=== PATIENT | male | born 1975 | race African-American/Black ===

== ENCOUNTER 2017-03-20 05:57 | Day surgery (SDC) | payer MEDICAID ==
[2017-03-19 15:48] LABS: HEMATOCRIT 41.8 % (42.0-54.0); MCH 30.2 pg (26.0-34.0); MCHC 33.5 g/dL (31.0-37.0); MCV 90.3 fL (80.0-100.0); RBC 4.63 10x6/uL (4.20-6.10); RDW 12.8 % (11.5-14.5); WBC 4.7 10x3/uL (4.8-10.8)
[~2017-03-20] VITALS: Ht 175.3 cm; Wt 113.4 kg
--- NOTE | ~2017-03-20 | OP ---
PATIENT NAME: ROHAN NARAYANAN MEDICAL RECORD: [id number] :77 LOCATION:[facility] ADMISSION DATE: SURGEON: JESSICA ARAIZA DO DATE OF OPERATION: 03/20/2017 PROCEDURE PERFORMED: A right ACL reconstruction with autograft and allograft, allograft posterior tib and autograft hamstrings, and also a partial medial meniscectomy. PREOPERATIVE DIAGNOSES: Right anterior cruciate ligament strain versus tear and medial meniscal tear in posterior horn. POSTOPERATIVE DIAGNOSES: Right anterior cruciate ligament tear, complete and posterior horn medial meniscus tear. INDICATIONS: Mr. Rohan Narayanan is a 41-year-old male who has had right knee pain for some time, has been catching and locking, popping and even feeling unstable. He does not remember an injury; however, this has been going on for quite some time. An MRI was done of his knee, which showed a possible high-grade partial tear of the ACL and a medial meniscal tear of the posterior horn. We had a long discussion with him in the office about and once we got in there we would probe the ACL and if it was not taut then we would do a reconstruction or if it is torn, we would do reconstruction and then we do a medial meniscectomy, partial. He was okay with that plan and consented to the procedure. He is aware of the risks and benefits as well as the pre and postop protocols. DESCRIPTION OF PROCEDURE: The patient was given a block in the preoperative area by anesthesia and taken to the operative suite, given 2 grams of Ancef preoperatively. The right lower extremity was prepped and draped in sterile fashion with a tourniquet above the knee. A timeout was performed and everyone was in agreement with the correct side, site, and patient. After this was done, the knee arthroscopy began with the knee flexed. A lateral portal was established with an 11-blade scalpel. The scope was entered into the knee and inspected. No loose bodies were seen in the suprapatellar pouch, the lateral pouch, or the medial pouch. The medial joint line was then entered. The medial portal was established. The ACL was probed at that time to see if we will be doing the reconstruction and indeed that was torn completely off the lateral femoral condyle, medial aspect, and was quite loose in the joint. We then opened up the medial joint and saw the meniscal tear. This was trimmed out with an upbiter and shaver back to a stable position. Once this was done, a lateral compartment was inspected and no meniscal tears were seen or any cartilage tears. The cartilage does appear to be intact on the medial femoral condyle; however, it was soft. The ACL was then cleaned out at that time. We then went to harvest the hamstrings. Incision was made approximately 6 cm from the medial joint line just to the medial side of the tibial tubercle. The hamstrings in the semitendinosus and gracilis were palpated. Careful dissection was made down the sartorial fascia. This was dissected and the gracilis was dissected out as well as the semitendinosus. Semitendinosus was harvested 1st and with a whipstitch and then divided. Then, the fascial connections to the medial gastroc were divided and freed up and then a tendon stripper was used to harvest the tendon. The gracilis was harvested in a similar manner; however, it was exceedingly short and thin and was not suitable for graft. At that time, we decided to use the posterior tib tendon, which is what we had in the freezer here to augment the hamstrings. The graft was then prepared and during that OPERATIVE REPORT [id number] ROHAN NARAYANAN time on the back table and the femoral condyle, lateral femoral canal was cleaned off more as well as the tibia to see where the ACL footprint was and outside in drill guide was used from [employer] and a size 11 was used. After the graft was sized and this was drilled, a nitinol wire was then passed through and secured through the medial portal from the lateral femoral condyle. After this was done, the tibia was drilled, first the guide was set at 50 degrees and once the tunnel position was in good position with a guide wire, we then reamed 7 and then a 10 and then dilated to a 11. We then attempted to pass the graft and did not pass easily. The ToggleLoc actually cinch down, had to take the graft out and reamed up to a 10.5 and then dilated to an 11 on the tibial side. Once this was done, the graft was attempted to pass again and the ToggleLoc failed to cinch down prior to flipping on the lateral femoral cortex. So, I decided to use an extra large [employer] ToggleLoc, which the graft was then passed and the button did flip on the lateral femoral cortex and we were able to cinch the graft into the femoral tunnel. Once this was done, the sutures off the graft were tied and the tensioner was used from [employer]. The graft was tensioned. The knee was cycled 20 times and tensioned, and then the dilator was used, and then the sheath was entered and malleted it into place, and a screw was then entered into the sheath and put flush with the tibia. We then checked inside the knee joint. The tourniquet was let down, had been inflated prior to making the femoral tunnels and had been up for 120 minutes at this point and was let down. We then entered the knee again and viewed the graft is in very good position and probe seemed to be very taut and then the excess sutures were cut inside the knee joint and that we used to toggle and also at the tibial side with sutures pulled through the ToggleLoc button as well. Once this was done, the wounds were irrigated and the graft sites over the sartorial fascia was closed with 2-0 Vicryl and then the skin 2-0 interrupted sutures were used on the skin and then 4-0 Monocryl running on the skin. The portal sites were then closed with 4-0 Monocryl as well as the femur side where the lateral femoral side incision was made in order to create a femoral tunnel. This was closed with 4-0 Monocryl as well. Steri-Strips were placed over all the wounds and Adaptic, 4 x 4s, ABD, cast padding were placed on the knee and a 6-inch Alejandro. The patient was placed with a JESUSITA hose up to the knee and placed in a knee immobilizer. He was awakened and taken to recovery in stable condition. ESTIMATED BLOOD LOSS: Minimal. COMPLICATIONS: None. TOURNIQUET TIME: 120 minutes. TRANSINT:[id number] Voice Confirmation ID: [id number] DOCUMENT ID: [id number] JESSICA ARAIZA DO at 1431 CC: [id number] DICTATION DATE: 03/20/17 1516 PRODUCTION LEADER: 03/20/17 2356 [facility] 03/20/17 [place] [address]
[~2017-03-20 05:57] MED LIST: BUPRENORPHIN-N1 EACH SL; CELEXA10 MG PO; NORVASC10 MG PO; TRAZODONE HCL150 MG PO
[2017-03-20 07:52] VITALS: BP 154/108; Ht 175.3 cm; Wt 113.4 kg
[2017-03-20] MEDS ORDERED: TORADOL10 MG PO (15:05)
[2017-03-20] MEDS ORDERED: PERCOCET 7.5/321 TAB PO (15:06)
== END 2017-03-20 17:15 | disposition home or self-care (01) ==
LOC: D.OPS 05:57 → D.PAN 09:15 → D.OPS 09:15
PROVIDERS: Anesthesiology
DX: S83.511A Sprain of anterior cruciate ligament of right knee, initial encounter (principal); S83.241A Other tear of medial meniscus, current injury, right knee, initial encounter; Z01.812 Encounter for preprocedural laboratory examination; X58.XXXA Exposure to other specified factors, initial encounter

== ENCOUNTER 2020-06-23 07:22 | Observation (INO) | payer MEDICAID ==
[~2020-06-23] VITALS: Ht 175.3 cm; Wt 136.4 kg
[~2020-06-23 07:22] MED LIST changes: +PERCOCET 7.5/321 TAB PO; +TORADOL10 MG PO
[2020-06-23 07:40] VITALS: BP 155/95
[2020-06-23 07:50] LABS: UDS - AMPHET NEGATIVE QUAL (NEGATIVE); UDS - BARB NEGATIVE QUAL (NEGATIVE); UDS - BENZO NEGATIVE QUAL (NEGATIVE); UDS - COCAINE NEGATIVE QUAL (NEGATIVE); UDS - OPIATE NEGATIVE QUAL (NEGATIVE); UDS - PCP NEGATIVE QUAL (NEGATIVE); UDS - THC POSITIVE QUAL (NEGATIVE)
[2020-06-23 08:00] LABS: BACTERIA RARE HPF (NONE SEEN); BILIRUBIN NEGATIVE (NEGATIVE); KETONE NEGATIVE (NEGATIVE); NITRITE NEGATIVE (NEGATIVE); UROBILINOGEN NORMAL mg/dL (< 2); WHITE CELLS - URINE 0-5 HPF (0-1)
[2020-06-23 08:29] LABS: BASOPHILS 0.2 % (0-2); EOSINOPHILS 0.3 % (0-7); HEMOGLOBIN 13.8 g/dL (13.5-17.5); IMMATURE GRANULOCYTES 0.2 % (0-5); LYMPHOCYTES 21.6 % (15-50); MCHC 32.1 g/dL (31.0-37.0); MCV 93.5 fL (80.0-100.0); MEAN PLATELET VOLUME 11.3 fL (7.4-10.4); MONOCYTES 4.9 % (2-11); NEUTROPHIL ABS# 4.71 10x3/uL (1.78-5.38); NEUTROPHILS 72.8 % (40-80); RDW 13.5 % (11.5-14.5); WBC 6.5 10x3/uL (4.8-10.8)
[2020-06-23 08:35] LABS: PLATELET COUNT 196 10x3/uL (130-400)
--- NOTE | 2020-06-23 09:52 | NUR ---
PT RESTING IN BED WITH S/O AT BEDSIDE. STATES HE FEELS A BIT OFF AND HIS BALANCE IS UNSTEADY. HE WOKE FEELING THIS WAY. WAS CONFUSED AND THAT WORRIED HIM. VSS AND NO C/O PAIN AT THIS TIME. WILL ADMIT PER MD. CALL LIGHT IN REACH.
[2020-06-23 10:10] LABS: CALC OSMOLALITY 279 mosm/kg (275-300); CALCIUM 8.7 mg/dL (8.5-10.1); CARBON DIOXIDE 27.8 mmol/L (21.0-32.0); CHLORIDE - SERUM 103 mmol/L (98-107); CREATININE - SERUM 1.5 mg/dL (0.6-1.3); GLUCOSE 107 mg/dL (74-106); POTASSIUM - SERUM 4.3 mmol/L (3.5-5.1); SODIUM 138 mmol/L (136-145); UREA NITROGEN 23 mg/dL (7-18); eGFR NON AFRICAN AMERICAN 54 mL/min (90-120)
--- NOTE | 2020-06-23 10:13 | NUR ---
RECEIVED REPORT FROM ED. PATIENT TO UNIT AFTER ECHO COMPLETE.
[2020-06-23 10:25] LABS: ALBUMIN 3.9 g/dL (3.4-5.0); ALKALINE PHOSPHATASE 66 U/L (30-120); ALT (SGPT) 27 U/L (10-68); CKMB 2.4 U/L (0.0-3.6); CREATINE KINASE 384 UL (21-232); MAGNESIUM - SERUM 2.3 mg/dL (1.8-2.4); PRO BNP 119 pg/mL (0-125); PROTEIN - SERUM 7.8 g/dL (6.4-8.2); THYROID STIMULATING HORMONE 0.26 uIU/mL (0.36-3.74)
[2020-06-23 10:26] LABS: TROPONIN-I < 0.017 ng/mL (0.000-0.060)
--- NOTE | 2020-06-23 10:31 | NUR ---
FROM RADIOLOGY CALLED AND STATED HE IS MAKING AN ADDENDUM TO HIS MRI REPORT, REPORT WAS OVER READ, THE NODULE STATED IN THE ORIGINAL REPORT IS ACTUALLY A NORMAL STRUCTURE AND NO MRI WITH CONTRAST IS NEEDED UNLESS THE MD HAS ANOTHER REASON TO GET AN MRI WITH CONTRAST OTHER THAN TO EVALUATE THE PREVIOUSLY IDENTIFIED NODULE THAT IS BEING ADDENDED A NORMAL STRUCTURE. THANKED .
[2020-06-23 10:46] LABS: APTT 32.1 SECONDS (22.8-39.4); D-DIMER-QUANTITATIVE 0.28 ug/mLFEU (0.20-0.54); INR 1.17 (0.85-1.17); PROTIME 13.8 SECONDS (11.6-15.0)
--- NOTE | 2020-06-23 11:00 | NUR ---
PATIENT ARRIVED TO UNIT VIA GERNEY AND ADMITTED TO ROOM 2115. PATIENT WITH FEMALE VISITOR AT BEDSIDE, ALERT/ORIENTED. AT BEDSIDE FOR ROUNDS AT THIS TIME. NO ACUTE DISTRESS. CALL LIGHT WITHIN REACH.
[2020-06-23 11:30] VITALS: BP 155/95; Ht 175.3 cm; Wt 136.4 kg
--- NOTE | 2020-06-23 12:20 | NUR ---
REQUESTED BLOOD CULTURES DUE TO PATIENT HAS AREA TO BOTTOM OF LEFT FOOT THAT WAS OOZING PUS X 2 DAYS AGO, NO DRAINAGE AT THIS TIME. AREA IS FIRM AND RAISED. PATIENT DENIES ANY TRAUMA TO AREA AND STATES HE CHECKS HIS FEET EVERY DAY DUE TO BEING DIABETIC, SIGNIFICANT OTHER AT BEDSIDE SAYS HE DOES NOT. AWAITING LAB TO DRAW BLOOD CULTURES AT THIS TIME.
[2020-06-23 12:57] LABS: ERYTHROCYTE SEDIMENTATION RATE 4 mm/hr (0-15)
--- NOTE | 2020-06-23 14:41 | NUR ---
BILATERAL SCDs APPLIED TO PATIENT AT THIS TIME. NO DISTRESS.
[2020-06-23 16:20] LABS: CKMB 2.7 U/L (0.0-3.6); CREATINE KINASE 354 UL (21-232)
[2020-06-23 16:21] LABS: TROPONIN-I < 0.017 ng/mL (0.000-0.060)
--- NOTE | 2020-06-23 19:45 | NUR ---
INITIAL ROUNDS AND ASSESSMENT COMPLETED. PT RESTING IN BED. AT BEDSIDE. IVF INFUSING. CALL LIGHT IN REACH. PT/SPOUSE TEACHING ON PLAN OF CARE.
[2020-06-23 21:00] LABS: CKMB 2.3 U/L (0.0-3.6); CREATINE KINASE 326 UL (21-232); TROPONIN-I 0.017 ng/mL (0.000-0.060)
[2020-06-23 21:04] VITALS: BP 133/85
[2020-06-24 01:57] VITALS: BP 140/81
[2020-06-24 02:32] LABS: CREATINE KINASE 317 UL (21-232); TROPONIN-I 0.018 ng/mL (0.000-0.060)
[2020-06-24 06:01] LABS: BASOPHILS 0.2 % (0-2); EOSINOPHILS 1.8 % (0-7); HEMATOCRIT 40.5 % (42.0-54.0); HEMOGLOBIN 13.1 g/dL (13.5-17.5); IMMATURE GRANULOCYTES 0.2 % (0-5); LYMPHOCYTE ABS# 2.47 10x3/uL (1.32-3.57); LYMPHOCYTES 40.3 % (15-50); MCHC 32.3 g/dL (31.0-37.0); MCV 92.7 fL (80.0-100.0); MEAN PLATELET VOLUME 11.3 fL (7.4-10.4); MONOCYTES 8.5 % (2-11); NEUTROPHIL ABS# 3.01 10x3/uL (1.78-5.38); PLATELET COUNT 221 10x3/uL (130-400); RBC 4.37 10x6/uL (4.20-6.10); RDW 13.2 % (11.5-14.5); WBC 6.1 10x3/uL (4.8-10.8)
[2020-06-24 06:10] VITALS: BP 138/91
[2020-06-24 06:35] LABS: ALKALINE PHOSPHATASE 80 U/L (30-120); BILIRUBIN - TOTAL 0.24 mg/dL (0.2-1.3); CALCIUM 8.1 mg/dL (8.5-10.1); CARBON DIOXIDE 25.7 mmol/L (21.0-32.0); CHLORIDE - SERUM 108 mmol/L (98-107); CREATINE KINASE 294 UL (21-232); CREATININE - SERUM 1.4 mg/dL (0.6-1.3); GLUCOSE 109 mg/dL (74-106); PROTEIN - SERUM 6.3 g/dL (6.4-8.2); SODIUM 144 mmol/L (136-145); eGFR NON AFRICAN AMERICAN 59 mL/min (90-120)
[2020-06-24 06:38] LABS: ALT (SGPT) 19 U/L (10-68); CALC OSMOLALITY 289 mosm/kg (275-300); POTASSIUM - SERUM 3.4 mmol/L (3.5-5.1); UREA NITROGEN 17 mg/dL (7-18)
[2020-06-24 06:40] LABS: CKMB 0.6 U/L (0.0-3.6)
--- NOTE | 2020-06-24 07:00 | NUR ---
RECEIVED REPORT. ASSUMED CARE OF PATIENT. RESTING IN BED WITH EYES OPEN, AT BEDSIDE. CALL LIGHT WITHIN REACH. WHITE BOARD UPDATED, BEDSIDE SHIFT REPORT COMPLETE. DENIES NEEDS. NO DISTRESS. PATIENT STATES HE DOESN'T REMEMBER ANYTHING HARDLY FROM YESTERDAY. PATIENT OVERALL PHYSICAL APPEARANCE IS IMPROVED THIS AM, DOESN'T "LOOK LIKE HE IS IN A DAZE" AT THIS TIME. NO DISTRESS.
[2020-06-24 07:36] VITALS: BP 144/90
--- NOTE | 2020-06-24 11:08 | NUR ---
20 GAUGE IV PLACED TO RIGHT FOREARM X 1 STICK, GOOD BLOOD RETURN, EASY FLUSH, TOLERATED IV PLACEMENT WELL. CALLED CT AT 8295 AND SPOKE WITH CARLA TO INFORM HIM THAT PATIENT IS READY FOR CT NOW THAT A 20 GAUGE IV HAS BEEN PLACED. IV FLUIDS INFUSING ORDERED AT 150/HR AT THIS TIME. NO DISTRESS.
[2020-06-24 16:12] VITALS: BP 143/92
--- NOTE | 2020-06-24 16:52 | NUR ---
RESTING IN BED, NO DISTRESS. CALL LIGHT WITHIN REACH.
--- NOTE | 2020-06-24 17:11 | NUR ---
PATIENT REQUESTING DISCHARGE PAPERS. PATIENT TOOK A WALK OFF THE UNIT TO GO OUTSIDE AND SMOKE, HE HAS A MEDICAL MARIJUANA CARD. SECURITY ESCORTED PATIENT BACK TO UNIT, PATIENT NOW REQUESTING DISCHARGE PAPERS OR WILL GO AMA DUE TO THE WAY THE SITUATION WAS HANDLED. THIS KNUCKLE STRAP SEWER WAS NOT PRESENT DURING THE ENCOUNTER, THIS KNUCKLE STRAP SEWER IS BEING TOLD WHAT HAPPENED PER THE PATIENTS . AWAITING CALL BACK FROM CHIDI SHEPARD AT THIS TIME INSTRUCTIONS.
--- NOTE | 2020-06-24 17:23 | NUR ---
DREA RETURNED CALL AND STATES THAT SHE CAN DISCHARGE ONCE THE RESULTS FROM THE CTA OF THE NECK WITH AND WITHOUT CONTRAST HAVE RESULTED, THE RESULTS CAN EVEN BE CALLED TO HER. IF THE PATIENT IS NOT WILLING TO WAIT ON RESULTS, THEN THEY ARE WELCOME TO GO AMA PER DREA. SPOKE WITH PATIENTS AND SHE IS ASKING PATIENT WHAT HE WOULD LIKE TO DO. PATIENT GOING AMA.
--- NOTE | 2020-06-24 17:42 | NUR ---
PATIENT LEFT AMA. 20 GAUGE IV REMOVED FROM RIGHT FOREARM, CATHETER TIP INTACT. NO BLEEDING FROM SITE. 2X2 GAUZE APPLIED AND SECURED WITH BANDAID. 22 GAUGE IV REMOVED FROM RIGHT AC. NO BLEEDING FROM SITE. CATHETER TIP INTACT. 2X2 GAUZE APPLIED AND SECURED WITH BANDAID. PATIENT THANKED THIS NURSE FOR CARES RENDERED. TELEMETRY REMOVED AND RETURNED TO COMPO CONVEYOR OPERATOR. PATIENT AND HIS LEFT UNIT WITH ALL PERSONAL BELONGINGS AT THIS TIME. DREA PAGED TO INFORM THAT THEY HAVE LEFT AMA. AWAITING CALL BACK FROM DREA AT THIS TIME.
--- NOTE | 2020-06-24 17:53 | NUR ---
DREA RETURNED CALL AND NOTIFIED OF PATIENT LEAVING AMA. THANKED DREA FOR CALLING BACK.
--- NOTE | 2020-06-25 08:00 | EC ---
PATIENT:FRANK NARAYANAN DATE OF SERVICE: 06/23/20 SEX: M MEDICAL RECORD: [id number] DATE OF : [birth year] LOCATION:D.M2 D.211 AGE OF PATIENT: 44 ADMISSION DATE: 06/23/20 REFERRING PHYSICIAN: INTERPRETING PHYSICIAN: MITUL CROWELL MD ECHOCARDIOGRAM REPORT ECHO CHARGES 4 ECHO COMPLETE Date: 06/23/20 CLINICAL DIAGNOSIS: PULMONARY EDEMA/HTN ECHOCARDIOGRAPHIC MEASUREMENTS (adult normal given) AC root (d.<3.7cm) 3.7 cm LV Septum d (<1.2 cm> 1.7 cm Valve Excursion 2.5 cm LV Septum (systole) 2.2 cm Left Atria (s.<4.0cm> 4.3 cm LVPW d(<1.2cm) 1.3 cm RV (d.<2.3cm) 3.2 cm LVPW (sytole) 2.2 cm LV diastole(<5.6CM) 7.5 cm MV E-F(>70mm/sec) cm LV systole 5.2 cm LVOT Diameter 2.2 cm MV exc.(>10mm) cm Est.ejection fraction (50-75%) % DOPPLER: LVIT cm/sec A 54.0 cm/sec E 86.0 cm/sec LA cm/sec RVSP 26.3 mmHg LVOT 77.0 cm/sec AOP1/2T m/s Asc. Ao 147 cm/sec RVOT 51.0 cm/sec RA cm/sec PA 100 cm/sec AV Gradient Peak 8.7 mmHg AV Mean 4.8 mmHg AV Area 1.8 cm MV Gradient Peak 4.8 mmHg MV Mean 1.5 mmHg MV Area cm COMMENTS: [employer] Worker: 1 BENSON RUIZOE Awning Maker And Installer: 3 Dr. Munoz TAPE# PACS Pericardial Effusion N DATE OF SERVICE: Adequate 2D, color flow imaging, spectral Doppler, and M-Mode. FINDINGS: LVH is present. LV internal dimension is dilated. LV is globally hypokinetic with reduced EF, is mildly reduced at 40% to 45%. Aortic valve is tricuspid. No evidence of stenosis by Doppler interrogation. Left atrium mildly dilated at 4.3 cm. Mitral valve shows no prolapse. Mild MR. Right-sided chambers are grossly normal. Trace TR. ECHOCARDIOGRAM REPORT [id number] FRANK NARAYANAN TRANSINT:[id number] Voice Confirmation ID: [id number] DOCUMENT ID: [id number] MITUL CROWELL MD at 0800 CC: [id number] DICTATION DATE: 06/24/20955 PAN WASHER: 06/24/20 2018 [facility] [place] 06/24/20 [place] [id number] [place] [id number]
== END 2020-06-24 17:40 | disposition left against medical advice (07) ==
LOC: D.ER 07:22 → D.M2 08:31 → OBSVTIME 08:31 → D.EDHOLD 08:31 → D.MS 08:31 → D.EDHOLD 08:41 → D.M2 09:07
PROVIDERS: Family Medicine; ADMIT Emergency Medicine; ATTEND Emergency Medicine
DX: J81.1 Chronic pulmonary edema (principal); G93.40 Encephalopathy, unspecified; F32.9 Major depressive disorder, single episode, unspecified; R53.83 Other fatigue; I10 Essential (primary) hypertension; N17.9 Acute kidney failure, unspecified